=== PATIENT | male | born 1940 | race Caucasian/White ===

== ENCOUNTER 2018-02-08 11:29 | Inpatient (IN) | payer MEDICARE, OTHER ==
[~2018-02-08] VITALS: Ht 170.2 cm; Wt 85.7 kg
[~2018-02-08 11:29] MED LIST: ASCORBIC ACID500 MG PO; CASODEX50 MG PO; CRANBERRY450 M4 PO; DOCUSATE SODIU100 MG PO; GUAIFENESI100 MG/5 M ORAL; LACTULOSE20 GM/301 PO; LANOXIN125 MCG PO; MAALOX525 MG/11 PO; MULTI-VITAMIN1 EACH PO; MYLANTA30 M1 PO; NORCO 5-325 TA1 EACH PO; PEPCID20 MG PO; RANITIDINE HCL150 MG ORAL; ROBITUSSIN-DM118 M1 PO; SIMVASTATIN10 MG PO; TAMSULOSIN HCL0.4 MG PO; TYLENOL650 MG/20. ORAL; URECHOLINE25 MG ORAL; VITAMIN C500 M1 ORAL
[2018-02-08] MEDS ORDERED: Sodium Chloride 500ML 500 ML IV ONE (11:43)
[2018-02-08 12:06] VITALS: BP 137/64
[2018-02-08 12:22] LABS: ANION GAP 5 mmol/L (5-15); BLOOD UREA NITROGEN 14 mg/dL (7-18); CALCIUM 8.1 MG/DL (8.5-10.1); CARBON DIOXIDE 27 MMOL/L (21-32); CHLORIDE 107 MMOL/L (98-107); CREATININE 1.4 MG/DL (0.55-1.30); POTASSIUM 4.7 MMOL/L (3.5-5.1); SODIUM 139 MMOL/L (136-145)
[2018-02-08 12:23] LABS: BASOPHILS % (AUTO) 0.9 % (0.0-2.0); EOSINOPHILS % (AUTO) 3.7 % (0.0-3.0); HEMATOCRIT 47.4 % (42.0-52.0); LYMPHOCYTES % (AUTO) 17.3 % (20.0-45.0); MEAN CORPUSCULAR VOLUME 92 FL (80-99); MONOCYTES % (AUTO) 8.6 % (1.0-10.0); NEUTROPHILS % (AUTO) 69.5 % (45.0-75.0); PLATELET COUNT 199 K/UL (150-450); RED BLOOD COUNT 5.13 M/UL (4.70-6.10); RED CELL DISTRIBUTION WIDTH 12.7 % (11.6-14.8); WHITE BLOOD COUNT 9.3 K/UL (4.8-10.8)
[2018-02-08 12:37] LABS: ALANINE AMINOTRANSFERASE 15 U/L (12-78); ALBUMIN 3.1 G/DL (3.4-5.0); ALBUMIN/GLOBULIN RATIO 0.8 (1.0-2.7); ALKALINE PHOSPHATASE 86 U/L (46-116); ASPARTATE AMINO TRANSFERASE 23 U/L (15-37); BILIRUBIN,TOTAL 0.5 MG/DL (0.2-1.0); CKMB 1.9 NG/ML (0.0-3.6); CREATINE KINASE 75 U/L (26-308)
[2018-02-08 12:40] LABS: INR 6.1 (0.9-1.1)
[2018-02-08] MEDS ORDERED: Phytonadione 10 MG in D5W 55 ML IVPB ONE (12:45)
--- NOTE | 2018-02-08 12:50 | Diagnostic Imaging Report ---
Indication: Chest pain Comparison: 08/31/2013 A single view chest radiograph was obtained. Findings: Faint infiltrate may be present at the left lung base. Correlate clinically and obtain follow-up. Heart is enlarged. Pulmonary vascularity is normal. IMPRESSION: Possible pneumonia left lung base. Correlate clinically.
[2018-02-08] MEDS ORDERED: Phytonadione 10 MG in D5W 55 ML IVPB SCH (13:00)
[2018-02-08] MEDS ORDERED: LIPITOR20 MG ORAL (13:12)
[2018-02-08] MEDS ORDERED: TAMSULOSIN HCL0.4 MG ORAL (13:12)
[2018-02-08] MEDS ORDERED: PROSCAR5 MG ORAL (13:12)
[2018-02-08] MEDS ORDERED: CRANBERRY EXTRAC1 G1 ORAL (13:12)
[2018-02-08] MEDS ORDERED: BENADRYL ALLERG25 M1 PO (13:12)
[2018-02-08] MEDS ORDERED: COUMADIN4 MG ORAL (13:12)
[2018-02-08] MEDS ORDERED: CASODEX50 MG ORAL (13:12)
[2018-02-08] MEDS ORDERED: URECHOLINE25 M1 ORAL (13:12)
[2018-02-08] MEDS ORDERED: ASPIR 8181 MG ORAL (13:12)
[2018-02-08] MEDS ORDERED: ACETAMINOPHEN325 M1 ORAL (13:12)
[2018-02-08 13:54] VITALS: BP 142/86
--- NOTE | 2018-02-08 14:13 | Emergency Room Report ---
History of Present Illness General Chief Complaint: Abnormal Labs Source: Patient Present Illness HPI 77-year-old male presents to ED for evaluation. Patient coming from alf facility. Noted to have elevated INR and PTT labs drawn today. Patient on Coumadin. Upon arrival patient showing no signs of distress. Nonverbal at baseline. No active bleeding. No other aggravating or relieving factors. Denies any other associated symptoms Allergies: Coded Allergies: TERAZOSIN (Verified Allergy, Unknown, 09/28/12) Patient History Past Medical History: HTN, AFib, GERD, CVA/TIA, other - prostate cancer Past Surgical History: none Pertinent Family History: none Social History: Denies: smoking, alcohol use, drug use Immunizations: UTD Reviewed Nursing Documentation: PMH: Agreed; PSxH: Agreed Nursing Documentation-PMH Hx Cardiac Problems: Yes - AFIBB, hyperlipidemia, anemia, malformation of coronary vessels Hx Hypertension: Yes Hx Pacemaker: No Hx Asthma: No Hx COPD: No Hx Diabetes: No Hx Cancer: Yes - Prostate cancer Hx Gastrointestinal Problems: Yes - GERD Hx Dialysis: No 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 Hx Alzheimer's Disease: Yes Hx Seizures: No Review of Systems All Other Systems: limited Physical Exam Vital Signs Date Time Temp Pulse Resp B/P (MAP) Pulse Ox O2 Delivery O2 Flow Rate FiO2 02/08/18 11:16 97.4 60 16 137/64 96 Room Air 97.3 Sp02 EP Interpretation: reviewed, normal General Appearance: no apparent distress, other - nonverbal Head: normocephalic Eyes: bilateral eye normal inspection, bilateral eye PERRL ENT: normal ENT inspection Neck: normal inspection Respiratory: chest non-tender, lungs clear, normal breath sounds, speaking full sentences Cardiovascular #1: regular rate, rhythm, no edema Gastrointestinal: normal bowel sounds, non tender, soft, non-distended, no guarding, no rebound Rectal: deferred Genitourinary: no CVA tenderness Musculoskeletal: normal inspection Neurologic: other - nonverbal Psychiatric: other - nonverbal Skin: normal inspection Lymphatic: normal inspection Procedures Critical Care Time Critical Care Time i. I feel this is a highly complex case requiring extensive working including EKG/Rhythm strip, Xray/CT/US, Blood/urine lab work, repeat exams while in ED, and administration of strong opiates/narcotics for pain control, admission to hospital or close patient follow up. Total time: 30 min bedside evaluation and treatment excludes procedures (EKG). Reason for critical care: supratherapeutic INR Possible complications: hypotension, hypertension, PA, shock, arrhythmias, metabolic acidosis, end organ damage, respiratory failure. Interventions: labs, EKG, CXR, IVFS, Vitamin K Course: patient prsenting with abnormal labs. INR > 6. no active bleeding. given vitamin K IVPB Consultations: nursing staff, EMS, family Performed by: Dr Wilkinson Tolerated well condition = serious j. because of unstable vital signs this patient had a condition that could potentially threaten life or limb. I feel this is a critical patient who required my full attention while patient was considered critical. Total Critical Care Time excluding procedures was greater than 35 minutes Medical Decision Making Diagnostic Impression: Primary Impression: Supratherapeutic INR ER Course Hospital Course 77-year-old male referred to ED for elevated INR, on Coumadin Differential diagnoses include: bleeding, anemia, supratherapeutic INR Clinical course Patient placed on stretcher. After initial history and physical I ordered labs , EKG, CXR, IVFs EKG - afib, no acute ischemic changes interpreted by co Labs- Hb/hct stable, no leukocytosis, INR 6.1, Cr 1.4 Chest x-ray, questionable infiltrate left lower lung base. Patient afebrile, lungs clear. No white count Given 10 mg IV piggyback vitamin K. Patient will be admitted to Dr. Lindo Diagnosis - supratherapeutic INR Admitted to telemetry in serious condition Labs Test 02/08/18 11:45 02/08/18 13:50 White Blood Count 9.3 K/UL (4.8-10.8) Red Blood Count 5.13 M/UL (4.70-6.10) Hemoglobin 15.0 G/DL (14.2-18.0) Hematocrit 47.4 % (42.0-52.0) Mean Corpuscular Volume 92 FL (80-99) Mean Corpuscular Hemoglobin 29.2 PG (27.0-31.0) Mean Corpuscular Hemoglobin Concent 31.6 G/DL (32.0-36.0) Red Cell Distribution Width 12.7 % (11.6-14.8) Platelet Count 199 K/UL (150-450) Mean Platelet Volume 7.6 FL (6.5-10.1) Neutrophils (%) (Auto) 69.5 % (45.0-75.0) Lymphocytes (%) (Auto) 17.3 % (20.0-45.0) Monocytes (%) (Auto) 8.6 % (1.0-10.0) Eosinophils (%) (Auto) 3.7 % (0.0-3.0) Basophils (%) (Auto) 0.9 % (0.0-2.0) Prothrombin Time 58.6 SEC (9.30-11.50) Prothromb Time International Ratio 6.1 (0.9-1.1) Activated Partial Thromboplast Time 45 SEC (23-33) Sodium Level 139 MMOL/L (136-145) Potassium Level 4.7 MMOL/L (3.5-5.1) Chloride Level 107 MMOL/L (98-107) Carbon Dioxide Level 27 MMOL/L (21-32) Anion Gap 5 mmol/L (5-15) Blood Urea Nitrogen 14 mg/dL (7-18) Creatinine 1.4 MG/DL (0.55-1.30) Estimat Glomerular Filtration Rate mL/min (>60) Glucose Level 97 MG/DL (74-106) Calcium Level 8.1 MG/DL (8.5-10.1) Total Bilirubin 0.5 MG/DL (0.2-1.0) Aspartate Amino Transf (AST/SGOT) 23 U/L (15-37) Alanine Aminotransferase (ALT/SGPT) 15 U/L (12-78) Alkaline Phosphatase 86 U/L (46-116) Total Creatine Kinase 75 U/L (26-308) Creatine Kinase MB 1.9 NG/ML (0.0-3.6) Creatine Kinase MB Relative Index 2.5 Troponin I 0.025 ng/mL (0.000-0.056) Total Protein 7.1 G/DL (6.4-8.2) Albumin 3.1 G/DL (3.4-5.0) Globulin 4.0 g/dL Albumin/Globulin Ratio 0.8 (1.0-2.7) EKG Diagnostic Results Rate: normal Rhythm: other - afib ST Segments: no acute changes ASA given to the pt in ED: No Rhythm Strip Diag. Results EP Interpretation: yes Rhythm: no PVC's, no ectopy Chest X-Ray Diagnostic Results Chest X-Ray Diagnostic Results : Chest X-Ray Ordered: Yes # of Views/Limited/Complete: 1 View Indication: Other - ams EP Interpretation: Yes Interpretation: no pneumothorax, no acute cardiopulmonary disease, other - ? LLL infiltrate Impression: Other - ?PNA Electronically Signed by: Electronically signed by Julian Wilkinson MD Last Vital Signs Date Time Temp Pulse Resp B/P (MAP) Pulse Ox O2 Delivery O2 Flow Rate FiO2 02/08/18 13:54 97.2 63 16 142/86 95 Room Air 97.2 Status: improved Disposition: ADMITTED INPATIENT Condition: Serious Referrals: Chay Lindo MD (PCP) Julian Wilkinson MD Feb 08, 2018 14:13
[2018-02-08 14:20] LABS: APPEARANCE,URINE VERY CLOUDY; BILIRUBIN, URINE NEGATIVE (NEGATIVE); GLUCOSE, URINE (UA) NEGATIVE (NEGATIVE); KETONES,URINE NEGATIVE (NEGATIVE); LEUKOCYTE ESTERASE ,URINE 3+ (NEGATIVE); NITRITE,URINE POSITIVE (NEGATIVE); PH,URINE 7 (4.5-8.0); PROTEIN,URINE 3+ (NEGATIVE); UROBILINOGEN,URINE NORMAL MG/DL (0.0-1.0)
[2018-02-08 14:22] LABS: COLOR,URINE YELLOW
[2018-02-08] MEDS ORDERED: guaiFENesin 100mg/5ml Liq ud ORAL SCH (15:00)
[2018-02-08] MEDS ORDERED: Acetaminophen 500mg (ES) tab ORAL PRN (15:00)
--- NOTE | 2018-02-08 15:18 | Cardiac Electrophysiology PN ---
Subjective Subjective [id number] Objective Last 24 Hour Vital Signs Date Time Temp Pulse Resp B/P (MAP) Pulse Ox O2 Delivery O2 Flow Rate FiO2 02/08/18 14:15 97.2 63 16 142/86 95 Room Air 97.2 02/08/18 13:54 97.2 63 16 142/86 95 Room Air 97.2 02/08/18 12:06 97.3 70 16 137/64 96 Room Air 97.3 02/08/18 11:16 97.4 60 16 137/64 96 Room Air 97.3 Laboratory Tests Test 02/08/18 11:45 02/08/18 13:50 White Blood Count 9.3 K/UL (4.8-10.8) Red Blood Count 5.13 M/UL (4.70-6.10) Hemoglobin 15.0 G/DL (14.2-18.0) Hematocrit 47.4 % (42.0-52.0) Mean Corpuscular Volume 92 FL (80-99) Mean Corpuscular Hemoglobin 29.2 PG (27.0-31.0) Mean Corpuscular Hemoglobin Concent 31.6 G/DL (32.0-36.0) L Red Cell Distribution Width 12.7 % (11.6-14.8) Platelet Count 199 K/UL (150-450) Mean Platelet Volume 7.6 FL (6.5-10.1) Neutrophils (%) (Auto) 69.5 % (45.0-75.0) Lymphocytes (%) (Auto) 17.3 % (20.0-45.0) L Monocytes (%) (Auto) 8.6 % (1.0-10.0) Eosinophils (%) (Auto) 3.7 % (0.0-3.0) H Basophils (%) (Auto) 0.9 % (0.0-2.0) Prothrombin Time 58.6 SEC (9.30-11.50) H Prothromb Time International Ratio 6.1 (0.9-1.1) *H Activated Partial Thromboplast Time 45 SEC (23-33) H Sodium Level 139 MMOL/L (136-145) Potassium Level 4.7 MMOL/L (3.5-5.1) Chloride Level 107 MMOL/L (98-107) Carbon Dioxide Level 27 MMOL/L (21-32) Anion Gap 5 mmol/L (5-15) Blood Urea Nitrogen 14 mg/dL (7-18) Creatinine 1.4 MG/DL (0.55-1.30) H Estimat Glomerular Filtration Rate mL/min (>60) Glucose Level 97 MG/DL (74-106) Calcium Level 8.1 MG/DL (8.5-10.1) L Total Bilirubin 0.5 MG/DL (0.2-1.0) Aspartate Amino Transf (AST/SGOT) 23 U/L (15-37) Alanine Aminotransferase (ALT/SGPT) 15 U/L (12-78) Alkaline Phosphatase 86 U/L (46-116) Total Creatine Kinase 75 U/L (26-308) Creatine Kinase MB 1.9 NG/ML (0.0-3.6) Creatine Kinase MB Relative Index 2.5 Troponin I 0.025 ng/mL (0.000-0.056) Total Protein 7.1 G/DL (6.4-8.2) Albumin 3.1 G/DL (3.4-5.0) L Globulin 4.0 g/dL Albumin/Globulin Ratio 0.8 (1.0-2.7) L Prostate Specific Antigen Pending Urine Color Yellow Urine Appearance Very cloudy Urine pH 7 (4.5-8.0) Urine Specific [place] 1.010 (1.005-1.035) Urine Protein 3+ (NEGATIVE) H Urine Glucose (UA) Negative (NEGATIVE) Urine Ketones Negative (NEGATIVE) Urine Occult Blood 5+ (NEGATIVE) H Urine Nitrite Positive (NEGATIVE) H Urine Bilirubin Negative (NEGATIVE) Urine Urobilinogen Normal MG/DL (0.0-1.0) Urine Leukocyte Esterase 3+ (NEGATIVE) H Urine RBC 20-30 /HPF (0 - 0) H Urine WBC Tntc /HPF (0 - 0) H Urine Squamous Epithelial Cells Occasional /LPF Urine Bacteria Many /HPF (NONE) H Camden Leon MD Feb 08, 2018 15:18
[2018-02-08] MEDS ORDERED: guaiFENesin 100mg/5ml Liq ud ORAL PRN (15:30)
[2018-02-08] MEDS: Ascorbic Acid 500mg tab ORAL SCH (17:33)
[2018-02-08] MEDS: Bethanechol 25mg Tab ORAL SCH (17:33)
[2018-02-08] MEDS: Atorvastatin 20mg tab ORAL SCH (20:07)
[2018-02-08] MEDS: Tamsulosin 0.4mg cap ORAL SCH (20:07)
[2018-02-08] MEDS: Norco 5mg/325mg tab ORAL PRN (20:08)
[2018-02-08 21:09] VITALS: BP 174/73
[2018-02-08 21:18] VITALS: BP 156/86
[2018-02-08] MEDS: Piperacillin/Tazobactam 3.375 GM in D5W 110 ML IVPB SCH (22:34)
--- NOTE | 2018-02-08 23:00 | Consultation ---
DATE OF CONSULTATION: 02/08/2018 CARDIOLOGY CONSULTATION CONSULTING PHYSICIAN: Camden Leon M.D. REFERRING PHYSICIAN: Chay Lindo M.D. REASON FOR CONSULTATION: Bradycardia in the setting of atrial fibrillation. HISTORY OF PRESENT ILLNESS: The patient is a 77-year-old gentleman who was brought from senior living for elevated INR. The patient is on Coumadin for atrial fibrillation. The patient denies any chest pain, palpitation, or shortness of breath. On telemetry, the patient was found to be bradycardic, heart rate dropping to the 30s. At the time of my evaluation, the patient is comfortable. Denies any chest pain or shortness of breath. REVIEW OF SYSTEMS: Review of systems was negative other than what was mentioned in the history of present illness PAST MEDICAL HISTORY: 1. Hypertension. 2. Paroxysmal atrial fibrillation. 3. History of CVA. 4. Gastroesophageal reflux disease. 5. Prostate cancer. FAMILY HISTORY: Noncontributory. SOCIAL HISTORY: He lives at senior living. Does not smoke or drink alcohol. PHYSICAL EXAMINATION: VITAL SIGNS: Blood pressure of 142/86, pulse 53, respirations 16, temperature 97.2 degrees. HEAD AND NECK: Shows no JVD. LUNGS: Clear. CARDIOVASCULAR: Irregular S1 and S2 with no gallop or murmur. ABDOMEN: Soft and nontender. EXTREMITIES: No pitting edema. LABORATORY AND DIAGNOSTIC DATA: His labs show white count 9.2, hemoglobin 15, hematocrit 47.4, platelet count of 199. Sodium 139, potassium 4.7, BUN of 14, creatinine 1.4, and glucose of 97. Troponin is negative. INR 6.1. Urinalysis 20 to 30 rbc's and too numerous to count wbc's and many bacteria, positive nitrite. ASSESSMENT AND PLAN: 1. Atrial fibrillation with slow ventricular response. Heart rate dropping to 39. I will discontinue digoxin and get digoxin level. We will completely rule out [place] protocol with elevated troponin and get an echocardiogram to evaluate for ejection fraction and wall motion abnormality. INR is also supratherapeutic so we are going to hold on Coumadin. we are giving the patient vitamin K as no bleeding at this time. 2. Benign prostatic hypertrophy on Flomax. 3. Hyperlipidemia on Lipitor. 4. Urinary tract infection, antibiotic per Dr. Lindo. Thank you very much, Dr. Lindo, for allowing me to participate in the care of this patient. Please do not hesitate to contact me for any questions regarding my evaluation. Camden Leon M.D. DR: Shell JOB#: [id number] CC:
[2018-02-09] VITALS: BP 139/76
--- NOTE | 2018-02-09 00:15 | History and Physical Report ---
DATE OF ADMISSION: 02/08/2018 HISTORY OF PRESENT ILLNESS: The patient is admitted for supratherapeutic INR. Basically, the patient's INR is 6.1 outpatient on Coumadin for history of arrhythmia and DVT. The patient currently denies any bleeding. The patient also might have a touch of pneumonia per the ER doctor. He is admitted. He also has prostatic cancer and severe BPH. The patient does have dysuria. Denies fever or chills. Denies nausea, vomiting, or diarrhea. No shortness of breath. No cough. Feels weak. PAST MEDICAL HISTORY: Significant for prostate cancer, severe BPH, hyperlipidemia, urinary incontinence, history of obstructive uropathy, history of arrhythmia, and GERD. PAST SURGICAL HISTORY: Appendectomy and hernia repair. MEDICATIONS: Takes Coumadin, aspirin, Lipitor, bethanechol, Casodex, digoxin, Benadryl, Proscar, ranitidine, simvastatin, and Flomax. SOCIAL HISTORY: History of smoking. Denies alcohol or illicit drugs. Lives in a [facility]. FAMILY HISTORY: Noncontributory. REVIEW OF SYSTEMS: HEENT: Denies headaches. RESPIRATORY: Denies shortness of breath. Denies cough. CARDIOVASCULAR: Denies chest pain. No orthopnea. GASTROINTESTINAL: No nausea, vomiting, or diarrhea. Does have suprapubic tenderness and dysuria. EXTREMITIES: Denies pain in lower extremities. NEUROLOGIC: Denies change in vision or speech pattern. He has some weakness. PHYSICAL EXAMINATION: VITAL SIGNS: Temperature is 97.4 degrees, pulse is 60, and blood pressure is 137/64. HEENT: PERRLA. NECK: Supple. No lymphadenopathy. CHEST: Clear to auscultation. GASTROINTESTINAL: Soft, nontender, and nondistended. CARDIOVASCULAR: Irregularly irregular. GASTROINTESTINAL: Soft. Positive bowel sounds. Nontender. EXTREMITIES: A 1+ edema. The patient is wheelchair bound (patient's baseline). Reflexes are equal on both sides. LABORATORY AND DIAGNOSTIC DATA: WBC of 9.3, hemoglobin 15, and platelets 199. Sodium 139, potassium 4.7, chloride 107, BUN of 14, creatinine of 1.4, and glucose of 97. Troponin 0.025. ASSESSMENT AND PLAN: Supratherapeutic coagulopathy. The patient is on Coumadin. The patient might have possible pneumonia. The patient received vitamin K in the ER and Coumadin was stopped. The patient is going to be consulted by Dr. Aquino, Dr. Ortega, and Dr. Jose Lucas is going to see the patient for the severe BPH and prostate cancer followup. Vitamin K has been given to decrease the INR. Monitor for bleeding. Chay Lindo M.D. DR: RONY JOB#: [id number] CC:
--- NOTE | 2018-02-09 02:30 | Consultation ---
DATE OF CONSULTATION: 02/08/2018 NOTE: POOR AUDIO HEMATOLOGY/ONCOLOGY CONSULTATION CONSULTING PHYSICIAN: Adebayo Aquino M.D. REQUESTING PHYSICIAN: Chay Lindo M.D. REASON FOR CONSULTATION: Evaluation of elevated INR, coagulopathy. IDENTIFYING DATA: Dear Dr. Lindo, The patient is a pleasant 77-year-old male with history of assisted, history of atrial fibrillation, CAD, shortness of breath, disorder, prostate cancer, and chronic anemia in the past. The patient is doing well. However, the patient noted to have an elevated INR of 6.1. Hematology Service was consulted for further evaluation and treatment. PAST MEDICAL HISTORY: Significant for hypertension, chronic atrial fibrillation, CVA, psychiatric ____ dementia, Alzheimer disease, anemia. PAST SURGICAL HISTORY: Noncontributory. MEDICATIONS: Aspirin, Lipitor, and Tylenol. SOCIAL HISTORY: [facility] resident. No alcohol or tobacco use currently, . No illicit drug use. REVIEW OF SYSTEMS: CONSTITUTIONAL: No fevers, chills, or night sweats. SKIN: No rashes, bumps, or itching. HEENT: No headache, hearing or visual changes. BREASTS: No lumps, pain, or discharge. PULMONARY: No cough, sputum, or shortness of breath. GASTROINTESTINAL: No nausea, vomiting, or diarrhea. GENITOURINARY: No dysuria, frequency, or urgency. MUSCULOSKELETAL: No joint swelling, muscle pain, or trauma. PHYSICAL EXAMINATION: VITAL SIGNS: Reviewed. GENERAL: No acute distress. LUNGS: Decreased breath sounds. CARDIOVASCULAR: Regular rate. No S3 or S4. ABDOMEN: Soft, nontender, and nondistended. EXTREMITIES: A 1+ edema. LABORATORY AND DIAGNOSTIC DATA: Her labs have been reviewed. INR of 6.1. Platelet count 159,000. BUN of 14 and creatinine 1.4. IMAGING: Chest x-ray reviewed shows possible pneumonia . ASSESSMENT AND RECOMMENDATION: 1. Supratherapeutic INR. Administered 1 dose of vitamin K. The patient has been on Coumadin. Hold Coumadin tonight. 2. Chronic anemia, currently on IV fluids. Continue to closely monitor. Currently improved. 3. Prostate cancer history, obtain PSA. 4. Atrial fibrillation with history of being on Coumadin. 5. Pneumonia, antibiotics as per ID. 6. Acute kidney injury. Continue to closely monitor. I appreciate the consultation. Adebayo Aquino M.D. DR: MALIHA JOB#: [id number] CC:
[2018-02-09] MEDS: Piperacillin/Tazobactam 3.375 GM in D5W 110 ML IVPB SCH ×3 (05:48→21:59)
[2018-02-09 07:36] LABS: BASOPHILS % (AUTO) 0.7 % (0.0-2.0); EOSINOPHILS % (AUTO) 3.6 % (0.0-3.0); HEMOGLOBIN 14.6 G/DL (14.2-18.0); LYMPHOCYTES % (AUTO) 19.6 % (20.0-45.0); MEAN CORPUSCULAR VOLUME 91 FL (80-99); MONOCYTES % (AUTO) 7.4 % (1.0-10.0); NEUTROPHILS % (AUTO) 68.7 % (45.0-75.0); PLATELET COUNT 191 K/UL (150-450); RED BLOOD COUNT 4.83 M/UL (4.70-6.10); RED CELL DISTRIBUTION WIDTH 12.6 % (11.6-14.8); WHITE BLOOD COUNT 8.7 K/UL (4.8-10.8)
[2018-02-09 08:00] VITALS: BP 137/86
[2018-02-09 08:03] LABS: INR 1.3 (0.9-1.1)
[2018-02-09] MEDS: Bethanechol 25mg Tab ORAL SCH ×3 (08:26→17:16)
[2018-02-09] MEDS: Ascorbic Acid 500mg tab ORAL SCH ×2 (08:26→17:16)
[2018-02-09 08:49] LABS: ANION GAP 9 mmol/L (5-15); BLOOD UREA NITROGEN 13 mg/dL (7-18); CALCIUM 8.2 MG/DL (8.5-10.1); CARBON DIOXIDE 25 MMOL/L (21-32); CHLORIDE 106 MMOL/L (98-107); CREATININE 1.1 MG/DL (0.55-1.30); POTASSIUM 3.9 MMOL/L (3.5-5.1); SODIUM 140 MMOL/L (136-145)
[2018-02-09 12:00] VITALS: BP 151/79
[2018-02-09] MEDS ORDERED: Vancomycin 1.5 GM/D5W 250ML IVPB ONE (13:00)
--- NOTE | 2018-02-09 13:57 | Cardiology Report ---
APPROVED REPORT EXAM: Two-dimensional and M-mode echocardiogram with Doppler and color Doppler. INDICATION Atrial Fibrillation M-Mode DIMENSIONS IVSd1.8 (0.7-1.1cm)Left Atrium (MM)5.4 (1.6-4.0cm) LVDd5.6 (3.5-5.6cm)Aortic Root3.8 (2.0-3.7cm) PWd1.6 (0.7-1.1cm)Aortic Cusp Exc.1.7 (1.5-2.0cm) LVDs3.8 (2.5-4.0cm) PWs1.6 cm Technically difficult study due to poor acoustical windows. Normal left ventricular chamber size, systolic function and wall motion to extent visualized. Left ventricular ejection fraction grossly estimated to be 65-70 %. Study quality precludes accurate assessment of regional wall motion. Moderate left ventricular hypertrophy. Anterior Echo-free space, may be due to pericardial fat or effusion. Moderate bi-atrial enlargement. Right ventricular chamber size is within normal limits. Focal aortic valve sclerosis with adequate cusp excursion. Thickened mitral valve leaflets with normal excursion. Mitral annulus and aortic root calcification. Pulmonic valve not well visualized. Normal tricuspid valve structure. IVC not well visualized. A color flow and spectral Doppler study was performed and revealed: Mild aortic regurgitation. Mild mitral regurgitation. Can not determine left ventricular diastolic function by mitral diastolic velocities due to atrial fibrillation. Mild tricuspid regurgitation. Tricuspid systolic velocities suggests peak right ventricular systolic pressure of 46 mmHg, consistent with moderate pulmonary hypertension.
--- NOTE | 2018-02-09 15:53 | General Progress Note ---
Assessment/Plan Status: stable Assessment/Plan 1. Supratherapeutic INR. --> Administered 1 dose of vitamin K. --> The patient has been on Coumadin. Hold Coumadin for now. 2. Chronic anemia, currently on IV fluids. --> Continue to closely monitor. --> Hgb goal >7 --> Currently improved. 3. Prostate cancer history, obtain PSA. 4. Atrial fibrillation with history of being on Coumadin. 5. Pneumonia, continue antibiotics as per ID. 6. Acute kidney injury. Continue to closely monitor. The time the note was entered does not necessarily correspond to the time the patient was seen. Subjective Date patient seen: Feb 09, 2018 Allergies: Coded Allergies: TERAZOSIN (Verified Allergy, Unknown, 09/28/12) All Systems: reviewed and negative except above Subjective New INR is 1.3, warfarin ordered. Vitals are stable. No resp distress. Objective Last 24 Hour Vital Signs Date Time Temp Pulse Resp B/P (MAP) Pulse Ox O2 Delivery O2 Flow Rate FiO2 02/09/18 12:00 98.4 60 18 151/79 (103) 96 98.4 02/09/18 12:00 59 02/09/18 09:00 Room Air 02/09/18 08:00 98.1 67 20 137/86 (103) 95 98.1 02/09/18 08:00 58 02/09/18 04:00 48 02/09/18 00:00 97.9 61 20 139/76 (97) 96 97.9 02/09/18 00:00 60 02/08/18 21:18 97.7 78 20 156/86 (109) 96 97.7 02/08/18 21:09 98.1 72 20 174/73 (106) 96 98.1 02/08/18 21:00 Room Air 02/08/18 20:00 57 02/08/18 16:00 64 Intake and Output 02/08/18 02/09/18 19:00 07:00 Intake Total 796 ml Output Total 150 ml 350 ml Balance 646 ml -350 ml Intake Oral 240 ml IV Total 556 ml Output Urine Total 150 ml 350 ml # Voids 1 Laboratory Tests 02/09/18 06:35: White Blood Count 8.7, Red Blood Count 4.83, Hemoglobin 14.6, Hematocrit 44.0, Mean Corpuscular Volume 91, Mean Corpuscular Hemoglobin 30.2, Mean Corpuscular Hemoglobin Concent 33.1, Red Cell Distribution Width 12.6, Platelet Count 191, Mean Platelet Volume 6.7, Neutrophils (%) (Auto) 68.7, Lymphocytes (%) (Auto) 19.6L, Monocytes (%) (Auto) 7.4, Eosinophils (%) (Auto) 3.6H, Basophils (%) ( Auto) 0.7, Prothrombin Time 13.7H, Prothromb Time International Ratio 1.3H, Sodium Level 140, Potassium Level 3.9, Chloride Level 106, Carbon Dioxide Level 25, Anion Gap 9, Blood Urea Nitrogen 13, Creatinine 1.1, Estimat Glomerular Filtration Rate , Glucose Level 86, Calcium Level 8.2L, Troponin I 0.032 Height (Feet): 5 Height (Inches): 7.00 Weight (Pounds): 187 General Appearance: no apparent distress EENT: PERRL/EOMI Neck: normal alignment Cardiovascular: normal peripheral pulses Respiratory/Chest: no respiratory distress Abdomen: normal bowel sounds Adebayo Aquino MD Feb 09, 2018 15:53
[2018-02-09 16:00] VITALS: BP 149/81
--- NOTE | 2018-02-09 16:34 | Cardiac Electrophysiology PN ---
Assessment/Plan Assessment/Plan 1. Atrial fibrillation with slow ventricular response. Better now. Digoxin DCed. Ruled out for [place]. INR is also supratherapeutic so we are going to hold on Coumadin. Echo EF 65% 2. Benign prostatic hypertrophy on Flomax. 3. Hyperlipidemia on Lipitor. 4. Urinary tract infection, antibiotic per Dr. Lindo. Subjective Subjective Feeling better. No CP or SOB. Objective Last 24 Hour Vital Signs Date Time Temp Pulse Resp B/P (MAP) Pulse Ox O2 Delivery O2 Flow Rate FiO2 02/09/18 12:00 98.4 60 18 151/79 (103) 96 98.4 02/09/18 12:00 59 02/09/18 09:00 Room Air 02/09/18 08:00 98.1 67 20 137/86 (103) 95 98.1 02/09/18 08:00 58 02/09/18 04:00 48 02/09/18 00:00 97.9 61 20 139/76 (97) 96 97.9 02/09/18 00:00 60 02/08/18 21:18 97.7 78 20 156/86 (109) 96 97.7 02/08/18 21:09 98.1 72 20 174/73 (106) 96 98.1 02/08/18 21:00 Room Air 02/08/18 20:00 57 Intake and Output 02/08/18 02/09/18 19:00 07:00 Intake Total 796 ml Output Total 150 ml 350 ml Balance 646 ml -350 ml Intake Oral 240 ml IV Total 556 ml Output Urine Total 150 ml 350 ml # Voids 1 Laboratory Tests Test 02/09/18 06:35 White Blood Count 8.7 K/UL (4.8-10.8) Red Blood Count 4.83 M/UL (4.70-6.10) Hemoglobin 14.6 G/DL (14.2-18.0) Hematocrit 44.0 % (42.0-52.0) Mean Corpuscular Volume 91 FL (80-99) Mean Corpuscular Hemoglobin 30.2 PG (27.0-31.0) Mean Corpuscular Hemoglobin Concent 33.1 G/DL (32.0-36.0) Red Cell Distribution Width 12.6 % (11.6-14.8) Platelet Count 191 K/UL (150-450) Mean Platelet Volume 6.7 FL (6.5-10.1) Neutrophils (%) (Auto) 68.7 % (45.0-75.0) Lymphocytes (%) (Auto) 19.6 % (20.0-45.0) L Monocytes (%) (Auto) 7.4 % (1.0-10.0) Eosinophils (%) (Auto) 3.6 % (0.0-3.0) H Basophils (%) (Auto) 0.7 % (0.0-2.0) Prothrombin Time 13.7 SEC (9.30-11.50) H Prothromb Time International Ratio 1.3 (0.9-1.1) H Sodium Level 140 MMOL/L (136-145) Potassium Level 3.9 MMOL/L (3.5-5.1) Chloride Level 106 MMOL/L (98-107) Carbon Dioxide Level 25 MMOL/L (21-32) Anion Gap 9 mmol/L (5-15) Blood Urea Nitrogen 13 mg/dL (7-18) Creatinine 1.1 MG/DL (0.55-1.30) Estimat Glomerular Filtration Rate mL/min (>60) Glucose Level 86 MG/DL (74-106) Calcium Level 8.2 MG/DL (8.5-10.1) L Troponin I 0.032 ng/mL (0.000-0.056) Microbiology Date/Time Source Procedure Growth Status 02/08/18 13:50 Urine,Clean Catch Urine Culture - Preliminary Gram Positive Cocci Resulted Objective HEAD AND NECK: Shows no JVD. LUNGS: Clear. CARDIOVASCULAR: Irregular S1 and S2 with no gallop or murmur. ABDOMEN: Soft and nontender. EXTREMITIES: No pitting edema. Camden Leon MD Feb 09, 2018 16:34
[2018-02-09] MEDS ORDERED: Warfarin Sodium 5mg ORAL ONE (17:00)
--- NOTE | 2018-02-09 17:18 | General Progress Note ---
Assessment/Plan Problem List: (1) Supratherapeutic INR ICD Codes: R79.1 - Abnormal coagulation profile SNOMED: 477144315 Status: progressing Assessment/Plan afebrile coagulapthy improving uti bph appreciate urology visit and input Subjective ROS Limited/Unobtainable: Yes Constitutional: Reports: no symptoms Allergies: Coded Allergies: TERAZOSIN (Verified Allergy, Unknown, 09/28/12) Objective Last 24 Hour Vital Signs Date Time Temp Pulse Resp B/P (MAP) Pulse Ox O2 Delivery O2 Flow Rate FiO2 02/09/18 12:00 98.4 60 18 151/79 (103) 96 98.4 02/09/18 12:00 59 02/09/18 09:00 Room Air 02/09/18 08:00 98.1 67 20 137/86 (103) 95 98.1 02/09/18 08:00 58 02/09/18 04:00 48 02/09/18 00:00 97.9 61 20 139/76 (97) 96 97.9 02/09/18 00:00 60 02/08/18 21:18 97.7 78 20 156/86 (109) 96 97.7 02/08/18 21:09 98.1 72 20 174/73 (106) 96 98.1 02/08/18 21:00 Room Air 02/08/18 20:00 57 Intake and Output 02/08/18 02/09/18 19:00 07:00 Intake Total 796 ml Output Total 150 ml 350 ml Balance 646 ml -350 ml Intake Oral 240 ml IV Total 556 ml Output Urine Total 150 ml 350 ml # Voids 1 Laboratory Tests 02/09/18 06:35: White Blood Count 8.7, Red Blood Count 4.83, Hemoglobin 14.6, Hematocrit 44.0, Mean Corpuscular Volume 91, Mean Corpuscular Hemoglobin 30.2, Mean Corpuscular Hemoglobin Concent 33.1, Red Cell Distribution Width 12.6, Platelet Count 191, Mean Platelet Volume 6.7, Neutrophils (%) (Auto) 68.7, Lymphocytes (%) (Auto) 19.6L, Monocytes (%) (Auto) 7.4, Eosinophils (%) (Auto) 3.6H, Basophils (%) ( Auto) 0.7, Prothrombin Time 13.7H, Prothromb Time International Ratio 1.3H, Sodium Level 140, Potassium Level 3.9, Chloride Level 106, Carbon Dioxide Level 25, Anion Gap 9, Blood Urea Nitrogen 13, Creatinine 1.1, Estimat Glomerular Filtration Rate , Glucose Level 86, Calcium Level 8.2L, Troponin I 0.032 Height (Feet): 5 Height (Inches): 7.00 Weight (Pounds): 187 Neck: supple Cardiovascular: regularly irregular Respiratory/Chest: lungs clear Chay Lindo MD Feb 09, 2018 17:18
--- NOTE | 2018-02-09 18:00 | Consultation ---
DATE OF CONSULTATION: 02/09/2018 REASON FOR CONSULTATION: Enlarged prostate with history of prostate cancer. HISTORY OF PRESENT ILLNESS: The patient was admitted for supratherapeutic INR and history of BPH and prostate cancer. He is currently asymptomatic from the urologic standpoint except intermittent dysuria. PAST MEDICAL HISTORY: Significant for prostate cancer, BPH, hyperlipidemia, urinary incontinence, and history of obstructive uropathy. PAST SURGICAL HISTORY: He had appendectomy and hernia repair. FAMILY HISTORY: Noncontributory. REVIEW OF SYMPTOMS: Essentially negative from Urology standpoint except mild dysuria on urination. PHYSICAL EXAM: VITAL SIGNS: Stable. LUNGS: Clear to auscultation. CARDIOVASCULAR: Regular rate and rhythm. ABDOMEN: Soft and nontender. No CVA tenderness. No suprapubic tenderness. RECTAL: Digital rectal exam showed markedly enlarged prostate. Soft with maybe slight nodularity on the right side correlating with the history of prostate cancer. Scrotal and penile exam was normal. NEUROLOGICALLY: Intact. LABORATORY DATA: Reviewed. His white count is normal. His creatinine is 1.1. ASSESSMENT AND PLAN: The patient has a longstanding history of benign prostatic hypertrophy and prostate cancer. He should be on alpha-blockers halfway. Urinary tract infection, treated with antibiotics per ID and we will follow this patient with you. Accordingly, no current acute intervention is necessary. Philip Tsang M.D. DR: DENISHA JOB#: [id number] CC:
[2018-02-09 20:00] VITALS: BP 138/71
[2018-02-09] MEDS: Tamsulosin 0.4mg cap ORAL SCH (21:18)
[2018-02-09] MEDS: Atorvastatin 20mg tab ORAL SCH (21:18)
[2018-02-09] MEDS: Norco 5mg/325mg tab ORAL PRN (21:59)
--- NOTE | 2018-02-09 22:00 | Consultation ---
DATE OF CONSULTATION: 02/09/2018 INFECTIOUS DISEASES CONSULTATION CONSULTING PHYSICIAN: Arline Hung M.D. REFERRING PHYSICIAN: Chay Lindo M.D. This consultation has been done on behalf of Dr. King Ortega. REASON FOR CONSULTATION: Pneumonia. HISTORY OF PRESENTING ILLNESS: This is a 77-year-old gentleman with history of hypertension, atrial fibrillation, GERD, CVA, and prostate cancer who came from a retirement facility because of elevated INR and PTT. He was found to have a pneumonia and an Infectious Diseases consultation has been obtained for antibiotics. PAST MEDICAL HISTORY: 1. History of hypertension. 2. Atrial fibrillation. 3. GERD. 4. CVA. 5. Prostate cancer. 6. Hyperlipidemia. 7. Anemia. SOCIAL HISTORY: He does not smoke, drink, or use drugs. FAMILY HISTORY: Unknown. REVIEW OF SYSTEMS: Unable to obtain currently. MEDICATIONS: As an inpatient, he is on finasteride, multivitamin, Zosyn, Lipitor, Flomax, vitamin C, bethanechol, [place], guaifenesin, Tylenol, and Mylanta. ALLERGIES: To terazosin noted. PHYSICAL EXAMINATION: VITAL SIGNS: Temperature of 98.1 degrees, T-max of 98.1 degrees, pulse of 67, respiratory rate 20, blood pressure 137/86, and O2 saturation of 95%. HEENT: Pupils equally reactive to light and accommodation. Mouth appears clean without thrush. NECK: Supple. No adenopathy. No JVD. CARDIOVASCULAR: Regular rate and rhythm. No murmurs. LUNGS: Clear to auscultation bilaterally. No crackles. No wheezes. ABDOMEN: Soft and nontender. No organomegaly. EXTREMITIES: No cyanosis, no clubbing, and no edema. LABORATORY AND DIAGNOSTIC DATA: White count 8.7, hemoglobin 14.6, hematocrit 44, MCV 91, and platelet count of 191 with neutrophils of 68%. Sodium 140, potassium 3.9, chloride 106, bicarbonate 25, BUN 13, creatinine 1.1, glucose 86, calcium 8.2. Total bilirubin 0.5, AST 23, ALT 15, and alkaline phosphatase 86. CK of 75, CK-MB 1.9, troponin 0.032. Total protein 7.1, albumin 3.1. UA showing too numerous to count white cells. Urine culture showing gram-positive cocci. Chest x-ray showing possible pneumonia in the left lung base. ASSESSMENT: This is a 77-year-old gentleman with history of hypertension, atrial fibrillation, and prostate cancer who comes in with, 1. Left-sided pneumonia. 2. He has a gram-positive urinary tract infection. 3. Hypertension. 4. Prostate cancer. PLAN: 1. Continue Zosyn. 2. We will start the patient on IV vancomycin. 3. We will order sputum for Gram-stain and culture. 4. We will follow up cultures and adjust antibiotics accordingly. I would like to thank Dr. Lindo for this consultation. Arline Hung M.D. DR: FAN JOB#: [id number] CC: Chay Lindo M.D.; Fax#: [phone]
[2018-02-10] VITALS: BP 144/69
[2018-02-10 04:00] VITALS: BP 166/85
[2018-02-10] MEDS: Piperacillin/Tazobactam 3.375 GM in D5W 110 ML IVPB SCH ×3 (05:39→21:35)
[2018-02-10 08:00] VITALS: BP 136/72
[2018-02-10] MEDS: Bethanechol 25mg Tab ORAL SCH ×3 (08:48→17:17)
[2018-02-10] MEDS: Ascorbic Acid 500mg tab ORAL SCH ×2 (08:48→17:17)
[2018-02-10 09:00] LABS: INR 1.1 (0.9-1.1)
--- NOTE | 2018-02-10 09:36 | General Progress Note ---
Assessment/Plan Status: stable Assessment/Plan 1. Supratherapeutic INR. --> Administered 1 dose of vitamin K. --> The patient has been on Coumadin. Hold Coumadin for now. 2. Chronic anemia, currently on IV fluids. --> Continue to closely monitor. --> Hgb goal >7 --> Currently improved. 3. Prostate cancer history, obtain PSA. 4. Atrial fibrillation with history of being on Coumadin. 5. Pneumonia, continue antibiotics as per ID. 6. Acute kidney injury. Continue to closely monitor. The time the note was entered does not necessarily correspond to the time the patient was seen. Subjective Date patient seen: Feb 10, 2018 ROS Limited/Unobtainable: Yes Hematologic/Lymphatic: Reports: anemia Allergies: Coded Allergies: TERAZOSIN (Verified Allergy, Unknown, 09/28/12) All Systems: reviewed and negative except above Subjective No acute events. PT unchanged. Vitals are stable. No resp distress. Objective Last 24 Hour Vital Signs Date Time Temp Pulse Resp B/P (MAP) Pulse Ox O2 Delivery O2 Flow Rate FiO2 02/10/18 08:00 97.3 101 20 136/72 (93) 94 97.3 02/10/18 04:00 97.2 61 20 166/85 (112) 98 97.2 02/10/18 04:00 45 02/10/18 00:00 62 02/10/18 00:00 97.8 57 18 144/69 (94) 96 97.8 02/09/18 21:00 Room Air 02/09/18 20:00 99.3 75 18 138/71 (93) 94 99.3 02/09/18 20:00 66 02/09/18 16:00 98.2 62 18 149/81 (103) 95 98.2 02/09/18 16:00 55 02/09/18 12:00 98.4 60 18 151/79 (103) 96 98.4 02/09/18 12:00 59 Intake and Output 02/09/18 02/10/18 19:00 07:00 Intake Total 240 ml Output Total 750 ml Balance 240 ml -750 ml Intake Oral 240 ml Output Urine Total 750 ml # Voids 1 Laboratory Tests 02/10/18 06:40: Prothrombin Time 11.3, Prothromb Time International Ratio 1.1 Height (Feet): 5 Height (Inches): 7.00 Weight (Pounds): 189 General Appearance: no apparent distress EENT: PERRL/EOMI Neck: normal alignment Cardiovascular: normal peripheral pulses Respiratory/Chest: normal breath sounds, no respiratory distress Abdomen: soft Adebayo Aquino MD Feb 10, 2018 09:36
[2018-02-10 12:00] VITALS: BP 135/65
[2018-02-10] MEDS ORDERED: Vancomycin 1250mg/D5W 250ml IVPB SCH (13:00)
[2018-02-10 16:00] VITALS: BP 153/86
--- NOTE | 2018-02-10 16:48 | Cardiology Progress Note ---
Assessment/Plan Status: stable Assessment/Plan Assessment/Plan 1. Atrial fibrillation with slow ventricular response. Better now. Digoxin DCed. Ruled out for MO. INR is also supratherapeutic so we are going to hold on Coumadin. Echo EF 65% 2. Benign prostatic hypertrophy on Flomax. 3. Hyperlipidemia on Lipitor. 4. Urinary tract infection, antibiotic per Dr. Lindo. 5. Ok for discharge Subjective Cardiovascular: Reports: no symptoms Respiratory: Reports: no symptoms Gastrointestinal/Abdominal: Reports: no symptoms Genitourinary: Reports: no symptoms Subjective No acute events, no distress, INR 1.1 today Objective Last 24 Hour Vital Signs Date Time Temp Pulse Resp B/P (MAP) Pulse Ox O2 Delivery O2 Flow Rate FiO2 02/10/18 16:00 98.0 76 21 153/86 (108) 97 98.0 02/10/18 12:00 97.7 65 21 135/65 (88) 97 97.7 02/10/18 12:00 47 02/10/18 09:00 Room Air 02/10/18 08:00 44 02/10/18 08:00 97.3 101 20 136/72 (93) 94 97.3 02/10/18 04:00 97.2 61 20 166/85 (112) 98 97.2 02/10/18 04:00 45 02/10/18 00:00 62 02/10/18 00:00 97.8 57 18 144/69 (94) 96 97.8 02/09/18 21:00 Room Air 02/09/18 20:00 99.3 75 18 138/71 (93) 94 99.3 02/09/18 20:00 66 General Appearance: no apparent distress EENT: PERRL/EOMI Neck: non-tender Rhythm: Afib Cardiovascular: normal peripheral pulses Respiratory/Chest: chest wall non-tender Abdomen: normal bowel sounds Extremities: normal range of motion 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 Complete 02/08/18 13:50 Urine,Clean Catch Urine Culture - Final Enterococcus Faecalis Complete 02/08/18 13:50 Rectal Mucosa VRE Culture - Final NO VANCOMYCIN RESISTANT ENTEROCOCCUS ... Complete Deon Vera M.D. Feb 10, 2018 16:48
[2018-02-10] MEDS ORDERED: Warfarin Sodium 5mg ORAL ONE (17:00)
[2018-02-10] MEDS ORDERED: Tubing IV Secondary IV ONE (17:15)
[2018-02-10] MEDS ORDERED: NS 275ml ONE (17:15)
[2018-02-10 20:00] VITALS: BP 136/69
[2018-02-10] MEDS: Atorvastatin 20mg tab ORAL SCH (21:34)
[2018-02-10] MEDS: Tamsulosin 0.4mg cap ORAL SCH (21:34)
[2018-02-10] MEDS: Norco 5mg/325mg tab ORAL PRN (21:42)
--- NOTE | 2018-02-10 21:54 | General Progress Note ---
Assessment/Plan Problem List: (1) Supratherapeutic INR ICD Codes: R79.1 - Abnormal coagulation profile SNOMED: 207243752 Status: progressing Assessment/Plan no bleeding prostate cancer uti dc in am coagulapthy improving uti bph appreciate urology visit and input Subjective ROS Limited/Unobtainable: Yes Allergies: Coded Allergies: TERAZOSIN (Verified Allergy, Unknown, 09/28/12) Objective Last 24 Hour Vital Signs Date Time Temp Pulse Resp B/P (MAP) Pulse Ox O2 Delivery O2 Flow Rate FiO2 02/10/18 20:00 62 02/10/18 20:00 97.5 60 21 136/69 (91) 95 97.5 02/10/18 16:00 98.0 76 21 153/86 (108) 97 98.0 02/10/18 16:00 59 02/10/18 12:00 97.7 65 21 135/65 (88) 97 97.7 02/10/18 12:00 47 02/10/18 09:00 Room Air 02/10/18 08:00 44 02/10/18 08:00 97.3 101 20 136/72 (93) 94 97.3 02/10/18 04:00 97.2 61 20 166/85 (112) 98 97.2 02/10/18 04:00 45 02/10/18 00:00 62 02/10/18 00:00 97.8 57 18 144/69 (94) 96 97.8 Intake and Output 02/09/18 02/10/18 19:00 07:00 Intake Total 240 ml Output Total 750 ml Balance 240 ml -750 ml Intake Oral 240 ml Output Urine Total 750 ml # Voids 1 Laboratory Tests 02/10/18 06:40: Prothrombin Time 11.3, Prothromb Time International Ratio 1.1 Height (Feet): 5 Height (Inches): 7.00 Weight (Pounds): 189 Neck: supple Cardiovascular: normal rate Respiratory/Chest: lungs clear Abdomen: soft Chay Lindo MD Feb 10, 2018 21:54
[2018-02-11] VITALS: BP 135/74
[2018-02-11] MEDS ORDERED: Acetaminophen 500mg (ES) tab ORAL PRN (03:00)
[2018-02-11 04:00] VITALS: BP 146/82
[2018-02-11] MEDS ORDERED: Norco 5mg/325mg tab ORAL PRN (05:30)
[2018-02-11] MEDS ORDERED: Piperacillin/Tazobactam 3.375 GM in D5W 110 ML IVPB SCH (06:00)
[2018-02-11] MEDS ORDERED: guaiFENesin 100mg/5ml Liq ud ORAL PRN (07:30)
[2018-02-11 08:00] VITALS: BP 130/75
[2018-02-11] MEDS ORDERED: Bethanechol 25mg Tab ORAL SCH (09:00)
[2018-02-11] MEDS ORDERED: Ascorbic Acid 500mg tab ORAL SCH (09:00)
[2018-02-11 10:24] LABS: INR 1.2 (0.9-1.1)
--- NOTE | 2018-02-11 11:28 | Infectious Diseases Prog Note ---
Assessment/Plan Assessment/Plan antibiotics : vancomycin iv, zosyn A 1. pneumonia 2. enterococcus UTI 3. hypertension 4. prostate cancer P 1. d/c vancomycin iv, zosyn 2. start and continue augmentin 3 more days 3. will follow up cultures Subjective ROS Limited/Unobtainable: Yes Allergies: Coded Allergies: TERAZOSIN (Verified Allergy, Unknown, 09/28/12) Objective Vital Signs Last 24 Hour Vital Signs Date Time Temp Pulse Resp B/P (MAP) Pulse Ox O2 Delivery O2 Flow Rate FiO2 02/11/18 09:00 Room Air 02/11/18 08:00 97.3 92 20 130/75 (93) 96 97.3 02/11/18 04:00 97.2 65 18 146/82 (103) 94 97.2 02/11/18 00:00 Room Air 02/11/18 00:00 98.5 67 20 135/74 (94) 95 98.5 02/10/18 21:00 Room Air 02/10/18 20:00 62 02/10/18 20:00 97.5 60 21 136/69 (91) 95 97.5 02/10/18 16:00 98.0 76 21 153/86 (108) 97 98.0 02/10/18 16:00 59 02/10/18 12:00 97.7 65 21 135/65 (88) 97 97.7 02/10/18 12:00 47 Height (Feet): 5 Height (Inches): 7.00 Weight (Pounds): 189 Respiratory/Chest: lungs clear Cardiovascular: normal rate, regular rhythm, no gallop/murmur Abdomen: soft, non tender Extremities: no edema Microbiology Date/Time Source Procedure Growth Status 02/08/18 13:50 Nasal Nares Left MRSA Culture - Final NO METHICILLIN RESISTANT STAPH AUREUS... Complete 02/08/18 13:50 Urine,Clean Catch Urine Culture - Final Enterococcus Faecalis Complete 02/08/18 13:50 Rectal Mucosa VRE Culture - Final NO VANCOMYCIN RESISTANT ENTEROCOCCUS ... Complete Laboratory Tests Test 02/11/18 09:50 Prothrombin Time 12.3 SEC (9.30-11.50) H Prothromb Time International Ratio 1.2 (0.9-1.1) H Current Medications Medications (Trade) Dose Ordered Sig/Giovanna Route PRN Reason Start Time Stop Time Status Last Admin Dose Admin Acetaminophen (Tylenol) 500 mg Q4H PRN ORAL Prn Headache/Temp > 101 02/11/18 03:00 03/10/18 14:59 Acetaminophen/ Hydrocodone Bitart ([place] 5/325) 1 tab Q6H PRN ORAL For Pain 02/11/18 05:30 02/15/18 17:29 Al Hydroxide/Mg Hydroxide (Mylanta) 30 ml Q4H PRN ORAL dyspepsia 02/11/18 03:00 03/10/18 14:59 Ascorbic Acid (Vitamin C) 500 mg TWICE A DAY ORAL 02/11/18 09:00 03/10/18 17:59 Atorvastatin Calcium (Lipitor) 20 mg BEDTIME ORAL 02/11/18 21:00 03/10/18 20:59 Bethanechol Chloride (Urecholine) 25 mg THREE TIMES A DAY ORAL 02/11/18 09:00 03/10/18 17:59 Finasteride (Proscar) 5 mg DAILY ORAL 02/11/18 09:00 03/11/18 08:59 Guaifenesin (Robitussin) 100 mg Q8H PRN ORAL cough 02/11/18 07:30 03/10/18 14:59 Multivitamins (Multivitamins) 1 tab DAILY ORAL 02/11/18 09:00 03/11/18 08:59 Piperacillin Sod/ Tazobactam Sod 3.375 gm/Dextrose 110 ml @ 27.5 mls/hr EVERY 8 HOURS IVPB 02/11/18 06:00 02/16/18 05:59 02/11/18 05:51 Tamsulosin HCl (Flomax) 0.4 mg BEDTIME ORAL 02/11/18 21:00 03/10/18 20:59 Vancomycin HCl (Vanco rx to dose) 1 ea DAILY PRN MISC . 02/11/18 09:00 03/11/18 11:29 Vancomycin HCl/ Dextrose 250 ml @ 166.667 mls/hr Q24H IVPB 02/11/18 13:00 02/15/18 12:59 Warfarin Sodium (Coumadin per pharmacy) 1 ea DAILY PRN MISC Per rx protocol 02/11/18 09:00 03/11/18 11:44 Warfarin Sodium (Coumadin) 5 mg COUMADIN ONCE ORAL 02/11/18 17:00 02/11/18 17:01 DESI JUAN Feb 11, 2018 11:28
--- NOTE | 2018-02-11 11:33 | General Progress Note ---
Assessment/Plan Status: stable Assessment/Plan 1. Supratherapeutic INR. --> Administered 1 dose of vitamin K. --> The patient has been on Coumadin. Hold Coumadin for now. 2. Chronic anemia, currently on IV fluids. --> Continue to closely monitor. --> Hgb goal >7 --> Currently improved. 3. Prostate cancer history, obtain PSA. 4. Atrial fibrillation with history of being on Coumadin. 5. Pneumonia, continue antibiotics as per ID. 6. Acute kidney injury. Continue to closely monitor. The time the note was entered does not necessarily correspond to the time the patient was seen. Subjective Date patient seen: Feb 11, 2018 Hematologic/Lymphatic: Reports: anemia Allergies: Coded Allergies: TERAZOSIN (Verified Allergy, Unknown, 09/28/12) All Systems: reviewed and negative except above Subjective No acute events. Pt is stable. DC planning. Objective Last 24 Hour Vital Signs Date Time Temp Pulse Resp B/P (MAP) Pulse Ox O2 Delivery O2 Flow Rate FiO2 02/11/18 09:00 Room Air 02/11/18 08:00 97.3 92 20 130/75 (93) 96 97.3 02/11/18 04:00 97.2 65 18 146/82 (103) 94 97.2 02/11/18 00:00 Room Air 02/11/18 00:00 98.5 67 20 135/74 (94) 95 98.5 02/10/18 21:00 Room Air 02/10/18 20:00 62 02/10/18 20:00 97.5 60 21 136/69 (91) 95 97.5 02/10/18 16:00 98.0 76 21 153/86 (108) 97 98.0 02/10/18 16:00 59 02/10/18 12:00 97.7 65 21 135/65 (88) 97 97.7 02/10/18 12:00 47 Intake and Output 02/10/18 02/11/18 19:00 07:00 Intake Total 730.000 ml Output Total 150 ml 400 ml Balance 580.000 ml -400 ml Intake Oral 370 ml IV Total 360.000 ml Output Urine Total 150 ml 400 ml # Voids 2 # Bowel Movements 2 3 Laboratory Tests 02/11/18 09:50: Prothrombin Time 12.3H, Prothromb Time International Ratio 1.2H Height (Feet): 5 Height (Inches): 7.00 Weight (Pounds): 189 General Appearance: no apparent distress EENT: PERRL/EOMI Neck: normal alignment Cardiovascular: normal peripheral pulses Respiratory/Chest: no respiratory distress Abdomen: soft Adebayo Aquino MD Feb 11, 2018 11:33
[2018-02-11] MEDS ORDERED: Vancomycin 1250mg/D5W 250ml 250 ML IVPB SCH (13:00)
[2018-02-11] MEDS ORDERED: Warfarin Sodium 5mg ORAL ONE (17:00)
[2018-02-11] MEDS ORDERED: Tamsulosin 0.4mg cap ORAL SCH (21:00)
[2018-02-11] MEDS ORDERED: Atorvastatin 20mg tab ORAL SCH (21:00)
--- NOTE | 2018-02-12 10:55 | Discharge Summary ---
Discharge Summary Discharge Summary _ DATE OF ADMISSION: 02/18/2018 DATE OF DISCHARGE: 02/11/2018 CONSULTANTS: Dr. Adebayo Tsang [facility] HOSPITAL COURSE: Patient is a 77-year-old male, who was brought in from shelter due to abnormal labs. He was noted to have elevated INR and PTT. Patient is on Coumadin. He has medical history significant for hypertension, atrial fibrillation, GERD, CVA and prostate CA. On evaluation at ED, vital signs were stable. EKG showed atrial fibrillation with no acute ischemic changes. Blood work showed stable hemoglobin and hematocrit. INR was elevated to 6.1, PTT 58, PTT 45. He was given 10 mg IV piggyback vitamin K. He had a chest x-ray done that showed possible pneumonia on the left lung base. He was then admitted for evaluation of coagulopathy and pneumonia. Coumadin was placed on hold. He was monitored for bleeding. Patient has atrial fibrillation and was noted to be bradycardic at heart rate of 30s. Digoxin was discontinued. Echocardiogram done showed normal left ventricular size function and wall motion with EF 65-70%. There was mild aortic regurgitation and mild mitral regurgitation, he had moderate pulmonary hypertension. Heart rate improved post discontinuation of digoxin. Patient has history of prostate CA and BPH. He is currently asymptomatic from a urologic standpoint except for intermittent dysuria. Psa level was low. Chest x-ray was showing pneumonia. He was given Zosyn and IV vancomycin. Urine culture showed growth of Enterococcus faecalis. Zosyn and Vancomycin was discontinued. Antibiotic was switched to Augmentin. INR improved. He was resumed on Coumadin. Antibiotics were transitioned to po , he was cleared for discharge to complete antibiotic for 3 more days. FINAL DIAGNOSES: Hypercoagulable state, with supratherapeutic INR secondary to Coumadin use Enterococcus UTI Pneumonia Prostatic CA BPH Atrial fibrillation with slow ventricular response, on anticoagulation Acute kidney injury Hyperlipidemia DISPOSITION: Patient was discharged to [place]. DISCHARGE MEDICATIONS: Refer to Discharge Medication List. I have been assigned to dictate discharge summary on this account, and I was not involved in the patient's management. Nathalia Elder NP Feb 12, 2018 10:55
--- NOTE | 2018-02-13 00:32 | Consultation ---
History of Present Illness General Date patient seen: Feb 10, 2018 Chief Complaint: Abnormal Labs Present Illness HPI 77-year-old male presents to ED for evaluation. Patient coming from shelter facility. Noted to have elevated INR and PTT labs drawn. the pt pw anxiety and insomnia Allergies: Coded Allergies: TERAZOSIN (Verified Allergy, Unknown, 09/28/12) Medication History Scheduled Al Hydroxide/mg Hydroxide (Mag-Al Liquid), 30 ML PO Q4HR, (Reported) Ascorbic Acid* (Vitamin C*), 500 MG ORAL TWICE A DAY, (Reported) Aspirin* (Aspir 81*), 81 MG ORAL DAILY, (Reported) Atorvastatin Calcium* (Lipitor*), 20 MG ORAL BEDTIME, (Reported) Bethanechol Chl (Bethanechol Chloride), 25 MG ORAL THREE TIMES A DAY, (Reported) Bethanechol Chl* (Urecholine*), 25 MG ORAL THREE TIMES A DAY, (Reported) Bicalutamide (Casodex), 50 MG ORAL DAILY, (Reported) Cranberry Extract (Cranberry Extract), 425 MG ORAL DAILY, (Reported) Digoxin* (Lanoxin*), 125 MCG PO DAILY, (Reported) Diphenhydramine Hcl (Benadryl Allergy), 25 MG PO EVERY 6 HOURS, (Reported) Finasteride* (Proscar*), 5 MG ORAL DAILY, (Reported) Guaifenesin* (Guaifenesin), 5 ML ORAL Q8H, (Reported) Hydrocodone Bit/Acetaminophen 5-325* ([place] 5-325*), 1 TAB PO DAILY, (Reported) Ranitidine Hcl* (Zantac*), 150 MG ORAL DAILY, (Reported) Simvastatin (Zocor), 10 MG PO DAILY, (Reported) Tamsulosin Hcl (Tamsulosin Hcl*), 0.4 MG PO QHS, (Reported) Tamsulosin Hcl (Tamsulosin Hcl*), 0.4 MG ORAL BEDTIME, (Reported) Warfarin Sod* (Coumadin*), 4.5 MG ORAL BEDTIME, (Reported) Scheduled PRN Acetaminophen (Acetaminophen), 500 MG ORAL Q4HR PRN for Prn Headache/Temp > 101, (Reported) Acetaminophen* (Acetaminophen 325MG Tablet*), 325 MG ORAL Q6H PRN for For Pain, (Reported) Hydrocodone Bit/Acetaminophen 5-325* ([place] 5-325*), 1 TAB PO Q6HR PRN, ( Reported) Miscellaneous Medications Multivitamin (Multi-Vitamin Daily), 1 EACH PO, (Reported) Patient History History Provided By: Patient, Medical Record, PMD Healthcare decision maker Resuscitation status Full Code Advanced Directive on File No Review of Systems Psychiatric: Reports: prior hx, anxiety, emotional problems Physical Exam General Appearance: alert Neurologic: oriented x 3, responsive, depressed affect Height (Feet): 5 Height (Inches): 7.00 Weight (Pounds): 189 Medications Current Medications Medications (Trade) Dose Ordered Sig/Giovanna Route PRN Reason Start Time Stop Time Status Last Admin Dose Admin Amoxicillin/ Clavulanate Potassium (Augmentin) 500 mg EVERY 8 HOURS ORAL 02/11/18 14:00 02/18/18 13:59 Assessment/Plan Assessment/Plan anxiety d/o ativan prn Sallie Swift MD Feb 13, 2018 00:32
== END 2018-02-11 11:25 | DRG 194 ==
LOC: EDBD 11:29 → EDBEDREQ 11:45 → EMR 12:05 → 2E 12:17 → EDBEDREQ 12:37 → 2E 14:43 → 4W 02-11 00:30
DX: J18.9 Pneumonia, unspecified organism (principal); N17.9 Acute kidney failure, unspecified; N39.0 Urinary tract infection, site not specified; R79.1 Abnormal coagulation profile; Z79.01 Long term (current) use of anticoagulants; C61 Malignant neoplasm of prostate; I10 Essential (primary) hypertension; R00.1 Bradycardia, unspecified; K21.9 Gastro-esophageal reflux disease without esophagitis; Z86.73 Personal history of transient ischemic attack (TIA), and cerebral infarction without residual deficits; I34.0 Nonrheumatic mitral (valve) insufficiency; I35.1 Nonrheumatic aortic (valve) insufficiency; I27.20 Pulmonary hypertension, unspecified; B95.2 Enterococcus as the cause of diseases classified elsewhere; E78.5 Hyperlipidemia, unspecified; N40.0 Benign prostatic hyperplasia without lower urinary tract symptoms; I48.0 Paroxysmal atrial fibrillation; D64.9 Anemia, unspecified; Z87.891 Personal history of nicotine dependence
CPT/HCPCS: 36415; 71045; 80048; 80053; 80162; 81003; 82550; 82553; 84153; 84484; 85025; 85610; 85730; 86850; 86900; 86901; 87081; 87086; 87181; 93005; 93306; 99291